=== PATIENT | female | born 1990 | race Caucasian/White ===

== ENCOUNTER 2017-11-28 11:41 | Emergency (ER) | payer MEDICAID ==
[~2017-11-28] VITALS: Ht 154.9 cm; Wt 44.9 kg
[2017-11-28 11:44] VITALS: BP 121/73
== END 2017-11-28 17:34 | disposition left against medical advice (07) ==
LOC: ER 11:41
DX: R51 Headache (principal); K13.79 Other lesions of oral mucosa; Z53.21 Procedure and treatment not carried out due to patient leaving prior to being seen by health care provider

== ENCOUNTER 2019-06-12 10:21 | Emergency (ER) | payer MEDICAID ==
[~2019-06-12] VITALS: Ht 154.9 cm; Wt 48.5 kg
[2019-06-12] MEDS ORDERED: SODIUM CHLORIDE 0.9% 1,000 ML IVB ONE (10:53)
[2019-06-12] MEDS ORDERED: ONDANSETRON HCL 4 MG/2 ML VIAL IV ONE (11:00)
[2019-06-12] MEDS ORDERED: MORPHINE SULFATE 4 MG/ML SYR/VIAL IV ONE (11:00)
[2019-06-12] MEDS ORDERED: FAMOTIDINE (10MG/ML) 2ML VL IV ONE (11:00)
[2019-06-12 11:11] LABS: Basophils # (auto) 0 uL; Basophils % (auto) 0.4 % (0.0-2.0); Eosinophils # (auto) 0 uL; Eosinophils % (auto) 0.2 % (0.0-7.0); Hemoglobin 13.3 g/dL (12.2-16.2); Lymphocytes # (auto) 0.7 uL; Mean Corpuscular Hemoglobin 29.6 pg (28.0-32.0); Mean Corpuscular Hgb Conc. 33.1 g/dL (32.0-36.0); Mean Corpuscular Volume 89.4 fL (80.0-100.0); Monocytes # (auto) 0.6 uL; Monocytes % (auto) 10.1 % (0.0-12.0); Neutrophils # (auto) 4.6 uL; Neutrophils % (auto) 77.3 % (37.0-80.0); Platelet Count (auto) 142 10^3/uL (140-450); Red Blood Cells 4.48 10^6/uL (4.0-5.20); Red Cell Distribution Width 13.5 % (11.8-14.3); White Blood Cell 5.9 10^3/uL (4.4-10.8)
[2019-06-12 11:11] LABS: Urine Bacteria NONE SEEN /hpf (None Seen); Urine Blood Negative /uL (Negative); Urine Specific Gravity 1.004 (1.001-1.035); Urine WBC 1 /hpf (0 - 5)
[2019-06-12 11:20] LABS: Calcium 9.1 mg/dL (8.5-10.1)
[2019-06-12 11:29] LABS: BUN/Creatinine Ratio 8.7; Bilirubin, Total 0.4 mg/dL (0.2-1.0)
[2019-06-12 11:36] LABS: Potassium 3.8 mmol/L (3.5-5.1)
[2019-06-12 12:58] VITALS: BP 117/58
== END 2019-06-12 13:00 | disposition home or self-care (01) ==
LOC: ER 10:21
DX: O21.0 Mild hyperemesis gravidarum (principal); F12.10 Cannabis abuse, uncomplicated; Z3A.00 Weeks of gestation of pregnancy not specified
CPT/HCPCS: 36415; 80053; 81001; 81025; 84702; 85025; 94761; 96361; 96374; 96375; 99283; J2270; J2405; J3490; J7030